=== PATIENT | female | born 1995 | race American Indian/Alaskan Native ===

== ENCOUNTER 2019-04-08 18:42 | Emergency (ER) | payer MEDICAID ==
[2019-04-08] MEDS ORDERED: Amoxicillin/Clavulanate K 875-125 MG Tab PO ONE (19:26)
--- NOTE | 2019-04-08 19:33 | EDM.PDOC ---
ED HPI GENERAL MEDICAL PROBLEM - General Chief Complaint: ENT Problem Stated Complaint: EAR ACHE Time Seen by Provider: 04/08/19 19:05 Source of Information: Reports: Patient History Limitations: Reports: No Limitations - History of Present Illness INITIAL COMMENTS - FREE TEXT/NARRATIVE: This 24 yo female patient reports to the ED with left ear pain (2 week history) and head congestion (2 days). The patient reports she was seen at the [facility] for these symptoms, but was given ibuprofen. The patient has been taking OTC medications, but continues to have pain. Duration: Day(s): (2 (head congestion)), Week(s): (2 (left ear)) Location: Reports: Head Quality: Reports: Ache, Sharp, Stabbing Severity: Moderate Improves with: Reports: None Worsens with: Reports: None Context: Reports: Other Associated Symptoms: Reports: No Other Symptoms Treatments LOOM STOP CHECKER: Reports: Acetaminophen - Related Data Allergies Allergy/AdvReac Type Severity Reaction Status Date / Time contrast dye Allergy Other Uncoded 04/08/19 19:00 Home Meds: Home Meds . [No Known Home Meds] 04/08/19 [History] Past Medical History - Past Surgical History GI Surgical History: Reports: Appendectomy Social & Family History - Tobacco Use Smoking Status *Q: Current Some Day Smoker Years of Tobacco use: 1 Packs/Tins Daily: 0.1 - Caffeine Use Caffeine Use: Reports: Soda - Alcohol Use Date of Last Drink: 04/04/19 - Recreational Drug Use Recreational Drug Use: No ED ROS ENT - Review of Systems Review Of Systems: Comprehensive ROS is negative, except as noted in HPI. ED EXAM, ENT - Physical Exam Exam: See Below Exam Limited By: No Limitations General Appearance: Alert, WD/WN, Mild Distress Eye Exam: Bilateral Eye: EOMI, Normal Inspection, PERRL Ears: TM Bulging (left), TM Erythema (left), TM Fluid (bilateral) Nose: Normal Inspection, Normal Mucousa, No Blood Mouth/Throat: Normal Gums, Normal Lips, Normal Teeth Head: Atraumatic, Normocephalic Neck: Normal Inspection, Supple, Non-Tender, Full Range of Motion Respiratory/Chest: No Respiratory Distress, Lungs Clear, Normal Breath Sounds, No Accessory Muscle Use, Chest Non-Tender Cardiovascular: Normal Peripheral Pulses, Regular Rate, Rhythm, No Edema, No Gallop, No JVD, No Murmur, No Rub GI/Abdominal: Normal Bowel Sounds, Soft, Non-Tender, No Organomegaly, No Distention, No Abnormal Bruit, No Mass (Female) Exam: Deferred Rectal (Female) Exam: Deferred Back: Normal Inspection, Full Range of Motion Extremities: Normal Inspection, Normal Range of Motion, Non-Tender, No Pedal Edema, Normal Capillary Refill Neurological: Alert, Oriented, CN II-XII Intact, Normal Cognition, Normal Gait, Normal Reflexes, No Motor/Sensory Deficits Psychiatric: Normal Affect, Normal Mood Skin: Warm, Dry, Intact, Normal Color, No Rash Lymphatic: No Adenopathy Course - Vital Signs Last Recorded V/S: Last Vital Signs Temp 35.5 C L 04/08/19 18:49 Pulse 94 04/08/19 18:49 Resp 18 04/08/19 18:49 BP 127/76 04/08/19 18:49 Pulse Ox 98 04/08/19 18:49 - Orders/Labs/Meds Meds: Medications Discontinued Medications Generic Name Dose Route Start Last Admin Trade Name Davidq PRN Reason Stop Dose Admin Amoxicillin/Clavulanate Potassium 1 tab 04/08/19 19:26 04/08/19 19:33 Augmentin 875 Mg/125 Mg PO 04/08/19 19:27 1 tab ONETIME ONE Administration Departure - Departure Time of Disposition: 19:31 Disposition: Home, Self-Care 01 Condition: Fair Clinical Impression: Right otitis media with effusion - Discharge Information *PRESCRIPTION DRUG MONITORING PROGRAM REVIEWED*: Not Applicable *COPY OF PRESCRIPTION DRUG MONITORING REPORT IN PATIENT CHIRAG: Not Applicable Instructions: Otitis Media, Adult, [id number] Forms: ED Department Discharge Care Plan Goals: The patient and family were advised of the examination results during the visit. The patient was given an oral dose of Augmentin while in the ED. The patient was given a script for Augmentin (875/125) to take 1 by mouth 2 times per day for 10 days. The patient may be given Tylenol or ibuprofen as directed for temporary symptom relief. If the patient has any additional symptoms or concerns, the patient should visit her primary care facility or return to the emergency department. Sepsis Event Note - Evaluation Sepsis Screening Result: No Definite Risk - Focused Exam Vital Signs: Vital Signs Temp Pulse Resp BP Pulse Ox 04/08/19 18:49 35.5 C L 94 18 127/76 98 Date Exam was Performed: 04/08/19 Time Exam was Performed: 19:33
== END 2019-04-08 19:38 | disposition home or self-care (01) ==
LOC: DL.ED 18:42
DX: H65.91 Unspecified nonsuppurative otitis media, right ear (principal); F17.210 Nicotine dependence, cigarettes, uncomplicated; Z91.041 Radiographic dye allergy status
CPT/HCPCS: 99282; A9270

== ENCOUNTER 2019-04-21 14:27 | Emergency (ER) | payer MEDICAID ==
--- NOTE | 2019-04-21 15:20 | EDM.PDOC ---
ED HPI GENERAL MEDICAL PROBLEM - General Chief Complaint: MANAGER APPLIED Problem Stated Complaint: POSSIBLE MULTIPLE Time Seen by Provider: 04/21/19 15:05 Source of Information: Reports: Patient History Limitations: Reports: No Limitations - History of Present Illness INITIAL COMMENTS - FREE TEXT/NARRATIVE: This 24 yo female patient reports to the ED after visiting with a [facility] provider yesterday. The patient reports she was seen at the [facility] yesterday and advised she may have multiple pregnancies or "bubbles". The patient states the provider advised her to either go to the emergency department or see her primary care facility. The patient reports she recently moved to the area and does not have a primary care provider at this time. The patient reports she does have some lower abdominal cramping, but no bleeding or discharge. The patient reports her last menstrual period was 03/21/19. Onset: Unknown/Unsure Duration: Other Location: Reports: Other Quality: Reports: Other Severity: Mild Improves with: Reports: None Worsens with: Reports: None Context: Reports: Other Associated Symptoms: Reports: No Other Symptoms - Related Data Allergies Allergy/AdvReac Type Severity Reaction Status Date / Time contrast dye Allergy Other Uncoded 04/21/19 14:54 Home Meds: Home Meds . [No Known Home Meds] 04/08/19 [History] Past Medical History Gastrointestinal History: Reports: None MANAGER APPLIED History: Reports: - Infectious Disease History Infectious Disease History: Reports: None - Past Surgical History GI Surgical History: Reports: Appendectomy Social & Family History - Family History Family Medical History: Noncontributory - Tobacco Use Smoking Status *Q: Current Every Day Smoker Years of Tobacco use: 1 Packs/Tins Daily: 0.2 Used Tobacco, but Quit: No Second Hand Smoke Exposure: No - Caffeine Use Caffeine Use: Reports: Coffee, Soda - Recreational Drug Use Recreational Drug Use: No ED ROS GENERAL - Review of Systems Review Of Systems: Comprehensive ROS is negative, except as noted in HPI. ED EXAM, GI/ABD - Physical Exam Exam: See Below Exam Limited By: No Limitations General Appearance: Alert, WD/WN, No Apparent Distress Eyes: Bilateral: Normal Appearance, EOMI Ears: Normal External Exam, Normal Canal, Hearing Grossly Normal, Normal TMs Nose: Normal Inspection, Normal Mucosa, No Blood Throat/Mouth: Normal Inspection, Normal Lips, Normal Teeth, Normal Gums, Normal Oropharynx, Normal Voice, No Airway Compromise Head: Atraumatic, Normocephalic Neck: Normal Inspection, Supple, Non-Tender, Full Range of Motion Respiratory/Chest: No Respiratory Distress Cardiovascular: Normal Peripheral Pulses, Regular Rate, Rhythm, No Edema, No Gallop, No JVD, No Murmur, No Rub GI/Abdominal Exam: Normal Bowel Sounds, Soft, Non-Tender, No Organomegaly, No Distention, No Abnormal Bruit, No Mass, Pelvis Stable (Female) Exam: Deferred Rectal (Female) Exam: Deferred Back Exam: Normal Inspection, Full Range of Motion, NT Extremities: Normal Inspection, Normal Range of Motion, Non-Tender, Normal Capillary Refill, No Pedal Edema Neurological: Alert, Oriented, CN II-XII Intact, Normal Cognition, Normal Gait, Normal Reflexes, No Motor/Sensory Deficits Psychiatric: Normal Affect, Normal Mood Skin Exam: Warm, Dry, Intact, Normal Color, No Rash Lymphatic: No Adenopathy Course - Vital Signs Last Recorded V/S: Last Vital Signs Temp 36.7 C 04/21/19 14:50 Pulse 85 04/21/19 14:50 Resp 18 04/21/19 14:50 BP 118/72 04/21/19 14:50 Pulse Ox 99 04/21/19 14:50 - Orders/Labs/Meds Orders: Active Orders 24 hr Category Date Time Status OB Transvaginal [US] Urgent Exams 04/21/19 15:08 Ordered Labs: Laboratory Tests 04/21/19 04/21/19 04/21/19 Range/Units 15:10 15:10 15:10 WBC 12.8 H (5.0-10.0) 10^3/uL RBC 4.28 (4.2-5.4) 10^6/uL Hgb 12.2 (12.0-16.0) g/dL Hct 36.8 L (37.0-47.0) % MCV 86.0 (80-100) fL MCH 28.5 (27.0-34.0) pg MCHC 33.2 (33.0-35.0) g/dL Plt Count 288 (150-450) 10^3/uL Neut % (Auto) 35.5 L (42.2-75.2) % Lymph % (Auto) 18.8 L (20.5-50.1) % [place] % (Auto) 4.1 (2-8) % Eos % (Auto) 41.1 H (1.0-3.0) % Baso % (Auto) 0.5 (0.0-1.0) % Add Manual Diff Yes Neutrophils % (Manual) 44 (42-75) % Lymphocytes % (Manual) 20 (20-50) % Monocytes % (Manual) 4 (2-8) % Eosinophils % (Manual) 32 H (1-3) % Giant Platelets Rare Sodium 139 (135-145) mmol/L Potassium 3.6 (3.6-5.0) mmol/L Chloride 108 (101-111) mmol/L Carbon Dioxide 23.0 (21.0-31.0) mmol/L Anion Gap 11.6 BUN 7 (7-18) mg/dL Creatinine 0.7 (0.6-1.3) mg/dL Est Cr Clr Drug Dosing 122.59 mL/min Estimated GFR (MDRD) > 60 BUN/Creatinine Ratio 10.00 Glucose 77 (74-105) mg/dL Calcium 9.0 (8.4-10.2) mg/dl Total Bilirubin 0.9 (0.2-1.0) mg/dL AST 21 (10-42) IU/L ALT 19 (10-60) IU/L Alkaline Phosphatase 76 (42-121) IU/L Total Protein 7.4 (6.7-8.2) g/dl Albumin 4.3 (3.2-5.5) g/dl Globulin 3.1 Albumin/Globulin Ratio 1.39 HCG, Quant 60 H (0-25) mIU/ml Beta HCG, Quant TNP Departure - Departure Time of Disposition: 16:56 Disposition: Home, Self-Care 01 Condition: Fair Clinical Impression: Qualifiers: Weeks of gestation: less than 8 weeks Qualified Code(s): Z3A.01 - Less than 8 weeks gestation of - Discharge Information *PRESCRIPTION DRUG MONITORING PROGRAM REVIEWED*: Not Applicable *COPY OF PRESCRIPTION DRUG MONITORING REPORT IN PATIENT CHIRAG: Not Applicable Instructions: First Trimester of Forms: ED Department Discharge Care Plan Goals: The patient was advised of the examination and lab results during the visit. The patient was encouraged to establish a primary care facility for continued evaluation and further management of her . If the patient has any additional symptoms or concerns, the patient should either return to the emergency department or visit a primary care facility. Sepsis Event Note - Evaluation Sepsis Screening Result: No Definite Risk - Focused Exam Vital Signs: Vital Signs Temp Pulse Resp BP Pulse Ox 04/21/19 14:50 36.7 C 85 18 118/72 99 Date Exam was Performed: 04/21/19 Time Exam was Performed: 16:55 - My Orders Last 24 Hours: My Active Orders 04/21/19 15:08 OB Transvaginal [US] Urgent - Assessment/Plan Last 24 Hours: My Active Orders 04/21/19 15:08 OB Transvaginal [US] Urgent
[2019-04-21 15:37] LABS: ANION GAP 11.6; CHLORIDE,CL 108 mmol/L (101-111); SODIUM,NA 139 mmol/L (135-145)
--- NOTE | 2019-04-21 16:32 | US ---
EXAMINATION: OB Ltd 1 or More Fetus SEX: Female AGE: 24 years CLINICAL HISTORY: 24-year-old "gravid" female first trimester with CRAMPING. ([facility] advised pt to follow-up) Serum hCG pending. "Bubbles" (multiple pregnancies?) reported on previous sonogram. LMP February,. INTERPRETATION: Midline uterus mildly enlarged and a single (3.0 x 3.9 mm) saclike collection of fluid in the fundus with a uniformly thick "rind". Early 5 week intrauterine gestation probable. No definite pole, heart beat, or yolk sac demonstrated at this time. Expected periuterine vascularity. No sign of subchorionic bleed. Central endometrial "stripe" unremarkable. Symmetric normal ovaries (13 x 14 mm hypoechoic dominant cyst right adnexa that may represent corpus luteum ). Trace of free fluid in the cul-de-sac. Right ovary measures 3.8 cm L x 2.14 cm W x 2.17 cm AP diameter. Left ovary measures 2.7 cm L x 0.7 cm W x 0.8 cm AP diameter. CONCLUSION: Possible early (approximate 5 week IUP) first trimester intrauterine gestation. Close clinical, laboratory (serum hCG), and sonographic follow-up suggested.
== END 2019-04-21 17:16 | disposition home or self-care (01) ==
LOC: DL.ED 14:27
DX: O99.89 Other specified diseases and conditions complicating pregnancy, childbirth and the puerperium (principal); O99.331 Smoking (tobacco) complicating pregnancy, first trimester; R10.30 Lower abdominal pain, unspecified; F17.210 Nicotine dependence, cigarettes, uncomplicated; Z3A.01 Less than 8 weeks gestation of pregnancy; Z91.041 Radiographic dye allergy status
CPT/HCPCS: 36415; 76815; 76817; 80053; 84702; 85025; 99284-25